=== PATIENT | male | born 1925 | race Caucasian/White ===

== ENCOUNTER → 2016-06-16 | Outpatient (CLI) | payer MEDICARE ==
[~2016-06-16] MED LIST: APIX2.5T2 PO; ASPI-345; FLUT125C PO; GBPN300C PO; LORA-404 PO; MIRT15TA PO; TAMS-8 PO; TRAM-25 PO; WARF4TAB PO
== END ==
LOC: RAD 07:25
PROVIDERS: ATTEND Family Medicine
DX: Z53.9 Procedure and treatment not carried out, unspecified reason (principal)

== ENCOUNTER → 2016-06-24 | Outpatient (CLI) | payer MEDICARE | LOC: RAD 06:52 | PROVIDERS: ATTEND Family Medicine | DX: M54.16 Radiculopathy, lumbar region (principal) | CPT/HCPCS: 72148 ==

== ENCOUNTER → 2016-07-07 | Outpatient (CLI) | payer MEDICARE ==
[~2016-07-07] MED LIST changes: -APIX2.5T2 PO; -ASPI-345; -FLUT125C PO; -GBPN300C PO; -LORA-404 PO; -MIRT15TA PO; -TAMS-8 PO; -TRAM-25 PO; -WARF4TAB PO; +methylPREDNISolone 80 MG/ML (DEPO MEDROL) VIAL IM ONE
== END ==
LOC: PMC 13:43 → EDSTATUS 14:00
PROVIDERS: ATTEND Family Medicine
PROC: 3E0R33Z Introduction of Anti-inflammatory into Spinal Canal, Percutaneous Approach (ICD-10-PCS; principal; 2016-07-07)
DX: M48.07 Spinal stenosis, lumbosacral region (principal); M51.17 Intervertebral disc disorders with radiculopathy, lumbosacral region

== ENCOUNTER → 2016-07-22 | Outpatient (CLI) | payer MEDICARE | LOC: RAD 08:34 | PROVIDERS: ATTEND Physician Assistant Medical | DX: R10.84 Generalized abdominal pain (principal); K59.09 Other constipation | CPT/HCPCS: 74250 ==

== ENCOUNTER → 2016-10-12 | Outpatient (CLI) | payer MEDICARE ==
[~2016-10-12] MED LIST changes: +APIX2.5T2 PO; +ASPI-345; +COSYNTROPIN 0.25 MG/ML (CORTROSYN) VIAL IV ONE; +DULO30CA46 PO; +FLUT125C PO; +GBPN300C PO; +LMT25T PO; +LORA-404 PO; +LORA1TAB PO; +MIRT15TA PO; +MV-M1TAB21 PO; +SODIUM CHLORIDE FLUSH 3 ML SYR IV SCH; +SULF1TAB35 PO; +TAMS-8 PO; +TRAM-25 PO; +WARF4TAB PO; -methylPREDNISolone 80 MG/ML (DEPO MEDROL) VIAL IM ONE
== END ==
LOC: LAB 15:44
PROVIDERS: ATTEND Family Medicine
DX: E27.1 Primary adrenocortical insufficiency (principal)
CPT/HCPCS: 36415; 82533

== ENCOUNTER → 2016-10-13 | Outpatient (CLI) | payer MEDICARE ==
[~2016-10-13] VITALS: Ht 180.3 cm; Wt 79.8 kg
[~2016-10-13] MED LIST changes: +COSYNTROPIN 0.25 MG/ML (CORTROSYN) VIAL IM ONE; -COSYNTROPIN 0.25 MG/ML (CORTROSYN) VIAL IV ONE
[2016-10-13 07:50] VITALS: BP 133/93
[2016-10-13 15:04] LABS: CORTISOL BASELINE 15 ug/dL (3-20)
== END ==
LOC: EUOP 07:30
PROVIDERS: ATTEND Family Medicine
DX: E27.1 Primary adrenocortical insufficiency (principal)
CPT/HCPCS: 82533

== ENCOUNTER 2016-10-17 09:32 | Emergency (ER) | payer MEDICARE ==
[~2016-10-17] VITALS: Ht 180.3 cm; Wt 87.0 kg
[~2016-10-17 09:32] MED LIST changes: -COSYNTROPIN 0.25 MG/ML (CORTROSYN) VIAL IM ONE; -DULO30CA46 PO; -LMT25T PO; -LORA1TAB PO; -MV-M1TAB21 PO; -SODIUM CHLORIDE FLUSH 3 ML SYR IV SCH; -SULF1TAB35 PO
[2016-10-17 09:35] VITALS: BP 139/99
--- OUTSIDE RECORDS SUMMARY | 2016-10-17 09:39 | XMS REPORT | Summary of Care ---
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, R42) Status: Active Medications Name Dates Details Cymbalta 60 MG Oral Capsule Delayed Release Particles Refills: 0 Start 29-Aug-2016 Active LORazepam 1 MG Oral Tablet Refills: 0 Start 29-Aug-2016 Active Eliquis 5 MG Oral Tablet Refills: 0 Start 29-Aug-2016 Active Allergies and Adverse Reactions Name Dates Details amoxicillin (Allergy) Status: Active Procedures Procedure Dates Details History of Appendectomy History of Coronary Artery Triple Arterial Bypass Graft History of Prostate Surgery History of Gallbladder Surgery History of Upper Gastrointestinal Endoscopy (Therapeutic) History of Colonoscopy Procedures not documented Immunization Name Dates Details Immunizations not documented Family History Name Dates Details Family history of mental disorder (V17.0, Z81.8) Status: Active Name Dates Details Family history of sleep apnea (V19.8, Z82.0) Status: Active Social History Name Dates Details - Status: Name Dates Details Never smoker Vital Signs Date Test Result Details 29-Aug-2016 14:44 BP Systolic 126 mm[Hg] Status: Comments: Location: ; Position: Sitting BP Diastolic 89 mm[Hg] Status: Comments: Location: ; Position: Sitting 29-Aug-2016 14:43 BP Systolic 134 mm[Hg] Status: Comments: Location: ; Position: Standing BP Diastolic 99 mm[Hg] Status: Comments: Location: ; Position: Standing Heart Rate 94 /min Status: Weight 180 lb Status: Results Date Description Value Details Results not documented Plan of Care Name Dates Details Planned Observations Planned Goals not documented Instructions Name Dates Details Instructions not documented Encounters Appointment; Joshua Quintana M.D. Encounter Diagnosis: Problem not documented On 29-Aug-2016 14:30
[2016-10-17] MEDS ORDERED: MV-M1TAB21 PO (09:48)
[2016-10-17] MEDS ORDERED: DULO30CA46 PO (09:51)
[2016-10-17] MEDS ORDERED: LORA1TAB PO (09:51)
[2016-10-17] MEDS ORDERED: LMT25T PO (09:51)
[2016-10-17 10:08] LABS: BASOPHILS % (AUTO) 0 % (0-2); EOSINOPHILS # (AUTO) 0.1 10^3uL; EOSINOPHILS % (AUTO) 1 % (0-4); LYMPHOCYTES # (AUTO) 0.5 X10^3; MEAN CORPUSCULAR HEMOGLOBIN 30.9 PG (26.0-34.0); MEAN CORPUSCULAR HGB CONC 33.6 g/dL (31.0-37.0); MEAN CORPUSCULAR VOLUME 92 FL (80-100); MEAN PLATELET VOLUME 9.5 FL (6.0-9.5); MONOCYTES # (AUTO) 0.5 X10^3; MONOCYTES % (AUTO) 11 % (3-11); NEUTROPHILS # (AUTO) 3.8 X10^3; NEUTROPHILS % (AUTO) 78 % (51-67); PLATELET COUNT 199 10^3uL (150-450); WHITE BLOOD COUNT 4.87 10^3uL (4.0-11.0)
[2016-10-17 10:21] LABS: ALBUMIN 3.8 g/dL (3.4-5.0); ALKALINE PHOSPHATASE 88 U/L (38-126); ANION GAP 12.6 MEQ/L (3-15); BUN/CREATININE RATIO 16 (10-20)
--- NOTE | 2016-10-17 10:23 | NUR ---
no needs at this time
--- NOTE | 2016-10-17 11:08 | NUR ---
ultra sound called at this time
--- NOTE | 2016-10-17 11:35 | NUR ---
ultra sound states has several patients to do before arrival in er
[2016-10-17] MEDS ORDERED: SULF1TAB35 PO (12:07)
--- NOTE | 2016-10-17 12:47 | Diagnostic Imaging Report ---
INDICATION: Left calf swelling and redness AVAILABLE COMPARISONS: None EXAMINATION: Multiple real-time grayscale images as well as color duplex Doppler evaluation with spectral assessment were performed of the left femoral popliteal deep venous system. FINDINGS: Color and grayscale images demonstrate no intraluminal filling defects within the visualized portions of the common femoral, femoral vein of the thigh, deep femoral vein or the popliteal vein to suggest thrombus formation. These vessels demonstrate normal compressibility as well as response to augmentation. IMPRESSION: No sonographic evidence for a left femoropopliteal deep venous thrombosis. The visualized calf veins are also negative. Dictated by: Dictated on workstation # [id number]
== END 2016-10-17 12:20 | disposition home or self-care (01) ==
LOC: EDUNIT# 09:32 → ED 09:34
DX: L03.116 Cellulitis of left lower limb (principal)
CPT/HCPCS: 36415; 80053; 85025; 85379; 85610; 85730; 86140; 99282